=== PATIENT | female | born 1945 ===

== ENCOUNTER 2018-01-27 08:32 | Outpatient (CLI) | payer MEDICARE, BC | END 2018-01-27 08:33 | disposition home or self-care (01) | LOC: BICMRI 08:32 | PROVIDERS: ATTEND Anesthesiology Pain Medicine | DX: M48.02 Spinal stenosis, cervical region (principal); M47.892 Other spondylosis, cervical region; G95.0 Syringomyelia and syringobulbia | CPT/HCPCS: 72141 ==